=== PATIENT | male | born 1970 | race African-American/Black ===

== ENCOUNTER 2017-07-20 14:47 | Emergency (ER) | payer MEDICAID ==
[~2017-07-20] VITALS: Ht 167.6 cm; Wt 69.0 kg
[~2017-07-20 14:47] MED LIST: ASPI-515 PO; BENZ0.5T PO; DIVA250T PO; DIVA500T17 PO; DIVA500T4 PO; FENO134C PO; GABA300C10 PO; IBUP-1223 PO; METF500T4 PO; NICO-486 TD; RISP4TAB2 PO; SENN-99 PO
[2017-07-20] MEDS ORDERED: KETOROLAC 30 MG/1 ML IM ONE (15:30)
[2017-07-20] MEDS ORDERED: KETOROLAC 30 MG/1 ML ONE (15:39)
[2017-07-20 16:44] VITALS: BP 135/92
== END 2017-07-20 17:10 | disposition home or self-care (01) ==
LOC: ED 16:56
DX: G89.29 Other chronic pain (principal); M13.0 Polyarthritis, unspecified; M16.0 Bilateral primary osteoarthritis of hip; F17.200 Nicotine dependence, unspecified, uncomplicated
CPT/HCPCS: 73502; 96372; 99284; J1885